=== PATIENT | female | born 1965 | race Caucasian/White ===

== ENCOUNTER → 2016-05-31 | Outpatient (CLI) | payer OTHER ==
[~2016-05-31] MED LIST: THROMBIN (RECOMBINANT) 5,000 UNIT VIAL TP ONE
--- NOTE | 2016-05-31 11:15 | MA ---
Diagnostic Bilateral Digital Mammogram History: Post bilateral ultrasound breast biopsy.Evaluate marker placement. Comparison: Mammogram April 06, 2016. Technique: Two views of each breast. Findings: A stereotactically placed clip is present in each breast, behind the right areola and outte r left. There is no significant postprocedural hematoma in either site. A 13mm nodule in the inner r ight breast was not biopsied. Impression: 1. Excellent post procedural mammogram . 2. A 13mm nodule in the inner right breast was not biopsied. It has similar ultrasound characteristic s to the nodule that was biopsied in the left breast. This was discussed with the patient in detail, and the decision was made to wait for results of the left breast biopsy. If benign, the medial right breast lesion can be observed for stability on serial ultrasound/ mammography in 6 months or at the p atient's discretion, we would be happy to perform an additional ultrasound directed vacuum assisted c ore biopsy for histologic analysis. The patient decided not to pursue the 3rd biopsy today, a decisio n which I am in agreement. Recommendation: Assuming a benign diagnosis, then six-month followup bilateral mammography and right breast sonography are recommended to reestablish a baseline as well is to follow the probably benign nodule in the inner right breast. A message was left for Karissa Sewell NP at 11:12 am.
--- NOTE | 2016-05-31 13:20 | US ---
Vacuum-Assisted Ultrasound-Guided Core Biopsy Right Breast History: 9:00 retroareolar vascular nodule Crosscutting Measure #226: Current tobacco user: no. Technique: Following informed consent, the nodule within the 9:00 retroareolar position of the right breast was localized. The skin lateral to the nodule was marked and then prepped and draped in steri le fashion. Following local anesthesia with 1% lidocaine, lidocaine mixed with epinephrine was inject ed deeper within the breast tissue. A small skin sandra was placed on the skin surface, through which the 12 gauge [employer] vacuum-assisted core biopsy needle was advanced with ultrasound guidance to the de ep margin of the mass. Numerous core biopsy samples were obtained through the mass. A [employer] titanium clip was then placed in the biopsy bed. Hemostasis was obtained, a sterile pressure dressing was melonie lied and the patient sent for a postprocedural mammogram to document clip placement and to observe fo r postprocedural hematoma formation. She was then discharged without complication, with instructions to call us with any thoughts, complications or concerns. Impression: 1. Successful ultrasound-guided core biopsy of a likely intraductal nodule at the 9:00 retroareolar p osition of the right breast. 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 W e will await histologic evaluation. 2. Successful deployment of [employer] titanium clip positioned immediately adjacent to the biopsy site.
--- NOTE | 2016-05-31 13:21 | US ---
Vacuum-Assisted Ultrasound-Guided Core Biopsy Left Breast History: Nodule 3:00 radial, 5 cm from the nipple Crosscutting Measure #226: Current tobacco user: no. Scratch at Technique: Following informed consent, the mass within the 3:00 position of the left breast was loca lized from a lateral approach. The skin was marked and then prepped and draped in sterile fashion. Fo llowing local anesthesia with 1% lidocaine, lidocaine mixed with epinephrine was injected deeper with in the breast tissue. A small skin sandra was placed on the skin surface, through which the 9-gauge [employer] vacuum-assisted core biopsy needle was advanced with ultrasound guidance to the deep margin of th e mass. Numerous core biopsy samples were obtained through the mass. A [employer] titanium clip was then p laced in the biopsy bed. Marcaine was then injected at the biopsy site for prolonged analgesia. Hemos tasis was obtained, a sterile pressure dressing was applied and the patient sent for a postprocedural mammogram to document clip placement and to observe for postprocedural hematoma formation. She was t hen discharged without complication, with instructions to call us with any thoughts, complications or concerns. Impression: 1. Successful ultrasound-guided core biopsy of mass lateral 3:00 left breast , 5 cm from the nipple. 2. Successful deployment of [employer] titanium clip positioned immediately adjacent to the biopsy site.
== END ==
LOC: FIMAGING 08:22
PROVIDERS: ATTEND Nurse Practitioner
PROC: 0HBT3ZX Excision of Right Breast, Percutaneous Approach, Diagnostic (ICD-10-PCS; principal; 2016-05-31)
PROC: 0HBU3ZX Excision of Left Breast, Percutaneous Approach, Diagnostic (ICD-10-PCS; 2016-05-31)
PROC: BH02ZZZ Plain Radiography of Bilateral Breasts (ICD-10-PCS; 2016-05-31)
DX: D24.1 Benign neoplasm of right breast (principal); D24.2 Benign neoplasm of left breast; N60.11 Diffuse cystic mastopathy of right breast; N60.81 Other benign mammary dysplasias of right breast; N60.22 Fibroadenosis of left breast; Z80.3 Family history of malignant neoplasm of breast
CPT/HCPCS: G0204

== ENCOUNTER → 2016-12-14 | Outpatient (CLI) | payer OTHER | LOC: FIMAGING 08:50 | PROVIDERS: ATTEND Nurse Practitioner | DX: R92.8 Other abnormal and inconclusive findings on diagnostic imaging of breast (principal) | CPT/HCPCS: G0204 ==